=== PATIENT | female | born 1980 | race African-American/Black ===

== ENCOUNTER 2017-10-28 19:14 | Emergency (ER) | payer OTHER ==
[2017-10-28] MEDS: NAPROXEN 500 MG TAB PO (22:36)
== END 2017-10-28 22:41 | disposition home or self-care (01) ==
LOC: FTE 19:14
DX: S81.851A Open bite, right lower leg, initial encounter (principal); R40.2412 Glasgow coma scale score 13-15, at arrival to emergency department; W50.3XXA Accidental bite by another person, initial encounter; Y92.9 Unspecified place or not applicable
CPT/HCPCS: 99283; Z7502